=== PATIENT | male | born 1985 | race African-American/Black ===

== ENCOUNTER 2018-07-20 14:51 | Emergency (ER) | payer OTHER ==
[~2018-07-20] VITALS: Ht 167.6 cm; Wt 80.5 kg
[~2018-07-20 14:51] MED LIST: HYDR-4011 PO; IBUP-1542 PO
[2018-07-20 15:00] VITALS: BP 150/85; PULSE 78; RESP 20; Ht 167.6 cm; Wt 80.5 kg
[2018-07-20] MEDS ORDERED: HYDR-3980 PO (18:06)
[2018-07-20] MEDS ORDERED: NALO4SPR NS (18:06)
--- NOTE | 2018-07-20 22:27 | ERD ---
ER Documentation Chief Complaint Chief Complaint Complains of denbtal pain x 3 days HPI Patient is a 32-year-old male with no medical problems who presents with tooth pain. The patient has pain in the right upper tooth and said that it is cracked and that he needs to get a crown placed on it. He has seen a dentist and was given antibiotics for this. He has tried ibuprofen for pain. Upon review of old medical record the patient one previous visit in May of this year for tooth pain. ROS All systems reviewed and are negative except as per history of present illness. Medications Home Meds Active Scripts Naloxone HCl nasal spray (Narcan 4 mg/0.1 mL nasal) 4 Mg [place], 4 MG NS .Q2-3MIN for OPIOID OVERDOSE, #2 SPRAY 0 Refills [place] 0.1 mL into one nostril. Repeat with second device into other nostril after 2-3 minutes if no or minimal response Prov:BEL BYRD MD 07/20/18 Hydrocodone/Acetaminophen (Roland 10-325 Tablet) 1 Each Tablet, 1 TAB PO Q6H PRN for PAIN, #4 TAB Prov:BEL BYRD MD 07/20/18 Hydrocodone/Acetaminophen (Roland 5-325 Tablet) 1 Each Tablet, 1 TAB PO Q6H PRN for PAIN, #10 TAB Prov:MENDEL OWEN DO 05/05/18 Ibuprofen* (Motrin*) 600 Mg Tab, 600 MG PO Q6H PRN for PAIN AND OR ELEVATED TEMP, #30 TAB Prov:MENDEL OWEN DO 05/05/18 Allergies Allergies: Coded Allergies: No Known Allergy (Unverified , 05/05/18) PMhx/Soc Medical and Surgical Hx: pt denies Medical Hx, pt denies Surgical Hx Hx Alcohol Use: No Hx Substance Use: No Hx Tobacco Use: No Smoking Status: Never smoker FmHx Family History: No diabetes Physical Exam Vitals Vital Signs Date Temp Pulse Resp B/P (MAP) Pulse Ox O2 O2 Flow FiO2 Time Delivery Rate 07/20/18 97.4 78 20 150/85 99 15:00 (106) Physical Exam Const: No acute distress Head: Atraumatic Eyes: Normal Conjunctiva ENT: Poor dentition, marion and cracked tooth in the right upper maxilla Neck: Full range of motion. No meningismus. Resp: Clear to auscultation bilaterally Cardio: Regular rate and rhythm, no murmurs Abd: Soft, non tender, non distended. Normal bowel sounds Skin: No petechiae or rashes Back: No midline or flank tenderness Ext: No cyanosis, or edema Neur: Awake and alert Psych: Normal Mood and Affect Procedures/MDM Patient is a 32-year-old male who presents with dental pain and cracked tooth. I told him that the most important thing he needs is immediate dental care. The patient will be given 4 tablets of Roland but I would not give him more than this. He will get Narcan as well to prevent potential overdose. The patient can return for any worsening symptoms. Departure Diagnosis: Primary Impression: Toothache Additional Impression: Tooth disease Condition: Fair Patient Instructions: Dental Pain Referrals: [facility] ([facility] walk in clinic) Additional Instructions: SPECIALIST: YOU HAVE A MEDICAL CONDITION WHICH REQUIRES YOU TO SEE A SPECIALIST WITHIN THE NEXT 1-2 DAYS. PLEASE FOLLOW UP WITH YOUR PRIMARY PHYSICIAN FOR REFFERAL.IF YOU DO NOT HAVE A PRIMARY CARE PHYSICIAN AND/OR YOU CAN NOT AFFORD TO SEE A PHYSICIAN THE FOLLOWING RESOURCES HAVE BEEN SUPPLIED TO YOU. IT IS YOUR RESPONSIBILITY TO BE SEEN BY THE SPECIALIST BEL BYRD MD Jul 20, 2018 22:27
== END 2018-07-20 18:35 | disposition home or self-care (01) ==
LOC: FTE 14:51
DX: K08.89 Other specified disorders of teeth and supporting structures (principal)
CPT/HCPCS: 99283

== ENCOUNTER 2018-10-10 11:16 | Emergency (ER) | payer OTHER ==
[~2018-10-10] VITALS: Ht 185.4 cm; Wt 78.3 kg
[~2018-10-10 11:16] MED LIST changes: +HYDR-3980 PO; +NALO4SPR NS
[2018-10-10 11:19] VITALS: BP 148/83; PULSE 74; RESP 18; Ht 185.4 cm; Wt 78.3 kg
[2018-10-10] MEDS ORDERED: ACET325T33 PO (11:40)
[2018-10-10] MEDS ORDERED: SULF1TAB31 PO (11:40)
[2018-10-10] MEDS ORDERED: HC30CR25 TOP (11:40)
--- NOTE | 2018-10-10 11:44 | ERD ---
ER Documentation Chief Complaint Chief Complaint LEFT LEG POSSIBLE SPIDER BITES HPI 32-year-old male presenting with possible bug bite to his left leg. Patient states he was at his aunt's house in [place] and was helping her do work around the house. He noticed the next day he had 3 bumps on his leg he is not sure if he got bit by something. Patient denies any allergies to medication. Patient denies fever chills night sweats, patient is able to ambulate without pain. ROS All systems reviewed and are negative except as per history of present illness. Medications Home Meds Active Scripts Hydrocortisone* Topical (Hydrocortisone* Topical) 2.5%-28.3 Gm Cream..g., 1 APPLIC TOP BID, #1 TUB Prov:LAILA WILLIAM PA-C 10/10/18 Acetaminophen* (Tylenol*) 325 Mg Tablet, 1 TAB PO Q6 PRN for PAIN AND OR ELEVATED TEMP, #20 TAB Prov:LAILA WILLIAM PA-C 10/10/18 Sulfamethoxazole/Trimethoprim* (Bactrim Ds* Tablet) 1 Each Tablet, 1 TAB PO BID, #14 TAB Prov:LAILA WILLIAM PA-C 10/10/18 Naloxone HCl nasal spray (Narcan 4 mg/0.1 mL nasal) 4 Mg [place], 4 MG NS .Q2-3MIN for OPIOID OVERDOSE, #2 SPRAY 0 Refills [place] 0.1 mL into one nostril. Repeat with second device into other nostril after 2-3 minutes if no or minimal response Prov:BEL BYRD MD 07/20/18 Hydrocodone/Acetaminophen ([place] 10-325 Tablet) 1 Each Tablet, 1 TAB PO Q6H PRN for PAIN, #4 TAB Prov:BEL BYRD MD 07/20/18 Hydrocodone/Acetaminophen ([place] 5-325 Tablet) 1 Each Tablet, 1 TAB PO Q6H PRN for PAIN, #10 TAB Prov:MENDEL OWEN DO 05/05/18 Ibuprofen* (Motrin*) 600 Mg Tab, 600 MG PO Q6H PRN for PAIN AND OR ELEVATED TEMP, #30 TAB Prov:MENDEL OWEN DO 05/05/18 Allergies Allergies: Coded Allergies: No Known Allergy (Unverified , 05/05/18) PMhx/Soc Medical and Surgical Hx: pt denies Medical Hx, pt denies Surgical Hx Hx Alcohol Use: No Hx Substance Use: No Hx Tobacco Use: No Smoking Status: Never smoker Physical Exam Vitals Vital Signs Date Temp Pulse Resp B/P (MAP) Pulse Ox O2 O2 Flow FiO2 Time Delivery Rate 10/10/18 98.4 74 18 148/83 99 11:19 (104) Physical Exam GENERAL: The patient is well-appearing, well-nourished, in no acute distress HEENT: Atraumatic. Conjunctivae are pink. Pupils equal, round, and reactive to light. There is no scleral icterus. Tympanic membranes clear bilaterally. Oropharynx clear. No nystagmus or photophobia. NECK: C-spine is soft and supple. There is no meningismus. There is no cervical lymphadenopathy. CHEST: Clear to auscultation bilaterally. There are no rales, wheezes or rhonchi. HEART: Regular rate and rhythm. No murmurs, clicks, rubs or gallops. ABDOMEN:Soft, nontender and nondistended. Good bowel sounds. No rebound or guarding. No gross peritonitis. No gross organomegaly or masses. No Michael sign or McBurney point tenderness. BACK: No midline or flank tenderness. EXTREMITIES: Patient has 3 small lesions to his left leg, no fluctuance felt on palpation, no drainage, no erythematous to the surrounding tissue. Patient has good pulse motor sensation to the extremity. Equal pulses bilaterally. There is no peripheral clubbing, cyanosis,. Mildly erythematous, slight raise macule x3 approximately 4 cm diameter. Full range of motion. Grossly neurovascularly intact. NEUROLOGIC: Alert and oriented. Cranial nerves II through V intact. Motor strength in all 4 extremities with 5 out of 5 strength. Sensation grossly intact. Normal speech and gait. SKIN: There is no apparent rash or petechiae. The skin is warm and dry. Procedures/MDM Medical decision making: Patient is a 32-year-old male presenting with possible insect bite on his left leg. Physical exam was unremarkable patient's neurovascular exam was unremarkable no signs of cellulitis or systemic infection. Patient has good pulse motor sensation in the extremity she has mild irritation to the 3 small lesions. On palpation there is no fluctuance there is no appearance of pus or drainage from the lesions. Patient did not see what bit him but it does not appear to be an abscess. Patient is given prescription for Bactrim, hydrocortisone, acetaminophen. Patient was advised to follow-up with his primary care provider in 1 to 2 days regarding this visit. Patient was advised that if he develops any worsening pain in the extremity and unable to move the extremity fever chills or ulceration to the skin to return immediately. At this time I have low suspicion for cellulitis, osteomyelitis, systemic infection, necrotic tissue, fracture, compartment syndrome. Patient was advised if symptoms worsen return to ER immediately. Patient no further questions upon discharge and is in agreement to the treatment plan. Prescription for home: Bactrim Hydrocortisone Discharge: At this time, patient is stable for discharge and outpatient management. I have instructed the patient to follow-up with his\her primary care physician in 1 to 2 days. I have discussed with the patient the possibility of needing to see a specialist for further work-up and imaging studies if symptoms persist. I have instructed the patient to promptly return to the ER for any new or worsening symptoms including increased pain, fever, nausea, vomiting, weakness or LOC. The patient and\or family expressed understanding of and agreement with this p jose. All questions were answered. Home care instructions were provided. Disclaimer: Inadvertent spelling and grammatical errors are likely due to EHR\dictation software use and do not reflect on the overall quality of patient care. Also, please note that the electronic time recorded on the note does not necessarily reflect the actual time of the patient encounter. Departure Diagnosis: Primary Impression: Insect bite Encounter type: initial encounter Site of insect bite: lower leg Laterality: left Qualified Codes: S80.862A - Insect bite (nonvenomous), left lower leg, initial encounter; W57.XXXA - Bitten or stung by nonvenomous insect and other nonvenomous arthropods, initial encounter Condition: Stable Patient Instructions: Insect Bite Referrals: [facility] YOU HAVE RECEIVED A MEDICAL SCREENING EXAM AND THE RESULTS INDICATE THAT YOU DO NOT HAVE A CONDITION THAT REQUIRES URGENT TREATMENT IN THE EMERGENCY DEPARTMENT. FURTHER EVALUATION AND TREATMENT OF YOUR CONDITION CAN WAIT UNTIL YOU ARE SEEN IN YOUR DOCTORS OFFICE WITHIN THE NEXT 1-2 DAYS. IT IS YOUR RESPONSIBILITY TO MAKE AN APPOINTMENT FOR FOLOW-UP CARE. IF YOU HAVE A PRIMARY DOCTOR --you should call your primary doctor and schedule an appointment IF YOU DO NOT HAVE A PRIMARY DOCTOR YOU CAN CALL OUR PHYSICIAN REFERRAL HOTLINE AT IF YOU CAN NOT AFFORD TO SEE A PHYSICIAN YOU CAN CHOSE FROM THE FOLLOWING [facility] [address] [facility] [address] [facility] [address] [facility] [address] [facility] [address] [facility]. [facility]. [address] [facility]. [facility] YOU HAVE RECEIVED A MEDICAL SCREENING EXAM AND THE RESULTS INDICATE THAT YOU DO NOT HAVE A CONDITION THAT REQUIRES URGENT TREATMENT IN THE EMERGENCY DEPARTMENT. FURTHER EVALUATION AND TREATMENT OF YOUR CONDITION CAN WAIT UNTIL YOU ARE SEEN IN YOUR DOCTORS OFFICE WITHIN THE NEXT 1-2 DAYS. IT IS YOUR RESPONSIBILITY TO MAKE AN APPOINTMENT FOR FOLOW-UP CARE. IF YOU HAVE A PRIMARY DOCTOR --you should call your primary doctor and schedule and appointment IF YOU DO NOT HAVE A PRIMARY DOCTOR YOU CAN CALL OUR PHYSICIAN REFERRAL HOTLINE AT . IF YOU CAN NOT AFFORD TO SEE A PHYSICIAN YOU CAN CHOSE FROM THE FOLLOWING [facility]: [facility] [address] [place] [address] [facility] [address] [place] [address] [facility] [address] [place] [address] Additional Instructions: Call your primary care doctor TOMORROW for an appointment during the next 2-3 days.See the doctor sooner or return here if your condition worsens before your appointment time. LAILA WILLIAM PA-C Oct 10, 2018 11:44
== END 2018-10-10 11:55 | disposition home or self-care (01) ==
LOC: FTE 11:16
DX: S80.862A Insect bite (nonvenomous), left lower leg, initial encounter (principal); W57.XXXA Bitten or stung by nonvenomous insect and other nonvenomous arthropods, initial encounter; Y92.009 Unspecified place in unspecified non-institutional (private) residence as the place of occurrence of the external cause
CPT/HCPCS: 99283

== ENCOUNTER 2018-11-13 09:52 | Emergency (ER) | payer OTHER ==
[~2018-11-13] VITALS: Ht 188 cm; Wt 80.3 kg
[~2018-11-13 09:52] MED LIST changes: +ACET325T33 PO; +HC30CR25 TOP; +SULF1TAB31 PO
[2018-11-13 09:59] VITALS: BP 137/78; PULSE 76; RESP 17; Ht 188 cm; Wt 80.3 kg
[2018-11-13] MEDS ORDERED: LIDO30CR2 TP (10:18)
--- NOTE | 2018-11-14 07:08 | ERD ---
ER Documentation Chief Complaint Chief Complaint [place] BITES ALL OVER, ITCHING HPI 32-year-old male presenting with mosquito bites to his legs. He states is been going on for the last few days and he is concerned that he may have contracted malaria or another complication that could cause . Patient wanted to be evaluated. He has not use any medications to help alleviate the itching. He denies any fevers. Denies other medical problems. NKDA. Surgical history denies. Social history denies ROS All systems reviewed and are negative except as per history of present illness. Medications Home Meds Active Scripts Lidocaine (Lmx 4) 30 Gm Cream.gm., 30 GM TP BID, #1 Prov:RIZWANA PIERRE PA-C 11/13/18 Hydrocortisone* Topical (Hydrocortisone* Topical) 2.5%-28.3 Gm Cream..g., 1 APPLIC TOP BID, #1 TUB Prov:LAILA WILLIAM PA-C 10/10/18 Acetaminophen* (Tylenol*) 325 Mg Tablet, 1 TAB PO Q6 PRN for PAIN AND OR ELEVATED TEMP, #20 TAB Prov:LAILA WILLIAM PA-C 10/10/18 Sulfamethoxazole/Trimethoprim* (Bactrim Ds* Tablet) 1 Each Tablet, 1 TAB PO BID, #14 TAB Prov:LAILA WILLIAM PA-C 10/10/18 Naloxone HCl nasal spray (Narcan 4 mg/0.1 mL nasal) 4 Mg [place], 4 MG NS .Q2-3MIN for OPIOID OVERDOSE, #2 SPRAY 0 Refills [place] 0.1 mL into one nostril. Repeat with second device into other nostril after 2-3 minutes if no or minimal response Prov:BEL BYRD MD 07/20/18 Hydrocodone/Acetaminophen ([place] 10-325 Tablet) 1 Each Tablet, 1 TAB PO Q6H PRN for PAIN, #4 TAB Prov:BEL BYRD MD 07/20/18 Hydrocodone/Acetaminophen ([place] 5-325 Tablet) 1 Each Tablet, 1 TAB PO Q6H PRN for PAIN, #10 TAB Prov:MENDEL OWEN DO 05/05/18 Ibuprofen* (Motrin*) 600 Mg Tab, 600 MG PO Q6H PRN for PAIN AND OR ELEVATED TEMP, #30 TAB Prov:MENDEL OWEN DO 05/05/18 Allergies Allergies: Coded Allergies: No Known Allergy (Unverified , 05/05/18) PMhx/Soc Medical and Surgical Hx: pt denies Medical Hx, pt denies Surgical Hx Hx Alcohol Use: No Hx Substance Use: No Hx Tobacco Use: Yes Smoking Status: Former smoker FmHx Family History: No diabetes, No coronary disease, No other Physical Exam Vitals Vital Signs Date Temp Pulse Resp B/P (MAP) Pulse Ox O2 O2 Flow FiO2 Time Delivery Rate 11/13/18 97.6 76 17 137/78 98 09:59 (97) Physical Exam GENERAL: The patient is well-appearing, well-nourished, in no acute distress CHEST: Clear to auscultation bilaterally. There are no rales, wheezes or rhonchi. HEART: Regular rate and rhythm. No murmurs, clicks, rubs or gallops. EXTREMITIES: Equal pulses bilaterally. There is no peripheral clubbing, cyano sis or edema. No focal swelling or erythema. Full range of motion. Grossly neurovascularly intact. NEUROLOGIC: Alert and oriented. Cranial nerves II through XII intact. Motor strength in all 4 extremities with 5 out of 5 strength. Sensation grossly i ntact. SKIN: Small area with erythematous wheals noted to lower extremities and arms. No vesicles or pustules. No lymphatic streaking. Compartments soft. Procedures/MDM MDM: 32-year-old male presenting with mosquito bites. Patient exam is non- concerning I have low suspicion for complication due to mosquito bites. She is told symptoms change or worsen to return immediately to the ER. Patient is recommended follow-up with primary care. All questions answered at discharge Departure Diagnosis: Primary Impression: Mosquito bite Condition: Stable Patient Instructions: Mosquito Bite Referrals: [facility] YOU HAVE RECEIVED A MEDICAL SCREENING EXAM AND THE RESULTS INDICATE THAT YOU DO NOT HAVE A CONDITION THAT REQUIRES URGENT TREATMENT IN THE EMERGENCY DEPARTMENT. FURTHER EVALUATION AND TREATMENT OF YOUR CONDITION CAN WAIT UNTIL YOU ARE SEEN IN YOUR DOCTORS OFFICE WITHIN THE NEXT 1-2 DAYS. IT IS YOUR RESPONSIBILITY TO MAKE AN APPOINTMENT FOR FOLOW-UP CARE. IF YOU HAVE A PRIMARY DOCTOR --you should call your primary doctor and schedule an appointment IF YOU DO NOT HAVE A PRIMARY DOCTOR YOU CAN CALL OUR PHYSICIAN REFERRAL HOTLINE AT IF YOU CAN NOT AFFORD TO SEE A PHYSICIAN YOU CAN CHOSE FROM THE FOLLOWING [facility] [address] [facility] [address] [facility] [facility] [address] [facility] [address] [facility] [address] [facility]. [facility] [address] Additional Instructions: FOLLOW UP WITH YOUR PRIMARY CARE PHYSICIAN TOMORROW.Return to this facility if you are not improving as expected. RIZWANA PIERRE PA-C Nov 14, 2018 07:08
== END 2018-11-13 10:49 | disposition home or self-care (01) ==
LOC: FTE 09:52
DX: S80.861A Insect bite (nonvenomous), right lower leg, initial encounter (principal); S80.862A Insect bite (nonvenomous), left lower leg, initial encounter; W57.XXXA Bitten or stung by nonvenomous insect and other nonvenomous arthropods, initial encounter; Y92.9 Unspecified place or not applicable; Z87.891 Personal history of nicotine dependence
CPT/HCPCS: 99282